=== PATIENT | female | born 1995 | race Caucasian/White ===

== ENCOUNTER 2016-11-24 10:09 | Emergency (ER) | payer OTHER ==
[~2016-11-24] VITALS: Ht 157.5 cm; Wt 109.1 kg
[2016-11-24] MEDS ORDERED: CRIN4GEL2 (10:23)
[2016-11-24 11:00] LABS: MEAN CORPUSCULAR HEMOGLOBIN 32.7 pg (27.0-33.0); MEAN CORPUSCULAR HGB CONC 35.9 g/dl (32.0-36.5); MEAN CORPUSCULAR VOLUME 91.1 fl (80.0-96.0); RED CELL DISTRIBUTION WIDTH 12.3 % (11.5-14.5); WHITE BLOOD COUNT 8.2 K/mm3 (4.0-10.0)
--- NOTE | 2016-11-24 11:49 | REP ---
FIRST TRIMESTER OB ULTRASOUND: 11/24/2016 CLINICAL HISTORY: Pelvic pain, vaginal bleeding. 11 weeks 2 days by LMP. FINDINGS: There are no prior pertinent studies. Study was performed with transabdominal probe and with an underfilled bladder. Uterus anteverted with a gestational sac shown and pole within. It has a crown-rump length of 4.1 cm corresponding to 11 weeks, which would give an EDC of 06/15/2017 compared to 06/13/2017 EDC by LMP. heart activity noted at 171. No subchorionic bleed is noted. Amniotic fluid is visually normal. The left ovary is seen with Doppler color flow demonstrated resistive index of 0.52 and measures 4.5 x 3.4 x 4.2 cm. The right ovary is 3.8 x 3.1 x 1.9 cm. It shows Doppler with resistive index of 0.59 and normal forward diastolic flow. No evidence of torsion. No adnexal mass or free fluid evident. IMPRESSION: 1. Single intrauterine gestation at 11 weeks by crown-rump length giving EDC 06/15/2017, by LMP 06/13/2017. heart rate: 171. No subchorionic bleed. 2. No adnexal mass or pelvic free fluid. No torsion. Signed by Edward Mathew MD 11/24/2016 03:53 P
[2016-11-24 13:55] VITALS: BP 124/75
== END 2016-11-24 13:56 | disposition home or self-care (01) ==
LOC: M ED 10:09
DX: O20.0 Threatened abortion (principal); O99.331 Smoking (tobacco) complicating pregnancy, first trimester; Z79.52 Long term (current) use of systemic steroids; Z3A.11 11 weeks gestation of pregnancy

== ENCOUNTER → 2017-03-01 | Outpatient (CLI) | payer OTHER ==
[~2017-03-01] MED LIST: CRIN4GEL2
--- NOTE | 2017-03-02 06:47 | REP ---
FOLLOWUP OBSTETRICAL ULTRASOUND: CLINICAL: Anatomical re-evaluation. COMPARISON: 01/15/2017. FINDINGS: Ultrasound examination demonstrates single live intrauterine in cephalic presentation. motion was identified by the technologist. Placenta is noted anteriorly and grade 1 without evidence for placenta previa or abruption. Amniotic fluid volume is normal. Cervix measures 3.4 cm in length and appears closed. No evidence for nuchal cord. Gestational age by LMP 25 weeks 1 day with estimated date of delivery 06/13/2017. Gestational age by current measurements 25 weeks 2 days with estimated date of delivery 06/12/2017. FHR 147 beats per minute. Estimated weight 802 grams (51st percentile). Anatomical assessment demonstrates normal cranium, choroid plexus, cavum, cerebellum/posterior fossa, lungs, four chamber heart, right cardiac ventricular outflow tract, diaphragm, stomach, cord insertion/three vessel cord, kidneys/bladder, spine and extremities. IMPRESSION: Single live intrauterine in cephalic presentation demonstrating appropriate interval growth. In conjunction with prior examination, limited evaluation of the facial features, left cardiac ventricular outflow tract are again noted. The remainder of the anatomical assessment is complete and normal. Signed by Eladio Rivera MD 03/03/2017 08:43 A
== END ==
LOC: M RAD 12:54
PROVIDERS: ATTEND Obstetrics & Gynecology
DX: Z34.82 Encounter for supervision of other normal pregnancy, second trimester (principal)

== ENCOUNTER → 2017-05-02 | Outpatient (CLI) | payer OTHER ==
[2017-05-02 13:54] LABS: HEMATOCRIT 33.8 % (36.0-47.0); HEMOGLOBIN 11.8 g/dl (12.0-16.0); MEAN CORPUSCULAR HEMOGLOBIN 31.3 pg (27.0-33.0); MEAN CORPUSCULAR HGB CONC 34.9 g/dl (32.0-36.5); MEAN CORPUSCULAR VOLUME 89.7 fl (80.0-96.0); PLATELET COUNT, AUTOMATED 235 10^3/uL (150-450); RED BLOOD COUNT 3.77 10^6/uL (4.00-5.40); RED CELL DISTRIBUTION WIDTH 12.9 % (11.5-14.5); WHITE BLOOD COUNT 7.1 10^3/uL (4.0-10.0)
[2017-05-02 14:14] LABS: GLUCOSE CHALLENGE TEST 1 HOUR 128 MG/DL (LESS THAN 140)
== END ==
LOC: M LAB 11:59
DX: Z36.89 Encounter for other specified antenatal screening (principal); Z3A.00 Weeks of gestation of pregnancy not specified
CPT/HCPCS: 82950

== ENCOUNTER → 2017-05-03 | Outpatient (CLI) | payer OTHER | LOC: M RAD 11:41 | DX: Z36.89 Encounter for other specified antenatal screening (principal); Z3A.33 33 weeks gestation of pregnancy | CPT/HCPCS: 76816 ==

== ENCOUNTER → 2017-05-17 | Outpatient (REF) | payer OTHER | LOC: M LAB REF 17:06 | DX: Z36.85 Encounter for antenatal screening for Streptococcus B (principal); Z3A.00 Weeks of gestation of pregnancy not specified | CPT/HCPCS: 87081 ==

== ENCOUNTER 2017-06-05 22:35 | Inpatient (IN) | payer OTHER ==
[2017-06-05] MEDS ORDERED: IBUPROFEN 800 MG TAB PO (23:15)
[2017-06-05] MEDS ORDERED: ANUSOL HC CREAM 30GM TOP (23:15)
[2017-06-05] MEDS ORDERED: MEASLES,MUMPS,RUBELLA VACCINE INJ (MMR-II) (90707) SC (23:15)
[2017-06-05] MEDS ORDERED: ACETAMINOPHEN 500 MG TAB PO (23:15)
[2017-06-05] MEDS ORDERED: DOCUSATE SODIUM 100 MG CAP PO (23:15)
[2017-06-05] MEDS ORDERED: MOM 30ML SUSPENSION UDC PO (23:15)
[2017-06-05] MEDS ORDERED: RHOGAM 300 MCG (1500 IU) INJ (J2790) IM (23:15)
[2017-06-05] MEDS ORDERED: DIBUCAINE 1% OINTMENT 30GM TOP (23:15)
[2017-06-05] MEDS ORDERED: METHYLERGONOVINE MALEATE 0.2 MG TAB PO (23:15)
[2017-06-06] MEDS: LIDOCAINE 1% MDV 20ML VIAL INFIL (00:37)
[2017-06-06] MEDS: OXYTOCIN INJ 10 UNITS/ML VIAL (J2590) IM (00:37)
[2017-06-06 02:59] LABS: HEPATITIS B SURFACE ANTIGEN NEGATIVE (NEGATIVE)
[2017-06-06] MEDS: PRENATAL VITAMINS CHEWABLE TABLET PO (08:42)
[2017-06-06] MEDS: INFLUENZA QUADRIVALENT PF VACCINE 0.5ML SYRINGE (90686) IM (11:15)
[2017-06-07] MEDS: PRENATAL VITAMINS CHEWABLE TABLET PO (08:17)
== END 2017-06-07 12:00 | disposition home or self-care (01) | DRG 775 ==
LOC: M LDI 22:35 → M OBS 06-06 00:46
PROVIDERS: Advanced Practice Midwife
PROC: 10E0XZZ Delivery of Products of Conception, External Approach (ICD-10-PCS; principal; 2017-06-05)
PROC: 0HQ9XZZ Repair Perineum Skin, External Approach (ICD-10-PCS; 2017-06-05)
DX: O70.0 First degree perineal laceration during delivery (principal); Z3A.38 38 weeks gestation of pregnancy; Z37.0 Single live birth

== ENCOUNTER → 2017-06-22 | Outpatient (CLI) | payer OTHER ==
[2017-06-22 08:06] LABS: ALT/SGPT 29 U/L (12-78); AST/SGOT 18 U/L (7-37); BILIRUBIN,TOTAL 0.2 MG/DL (0.2-1.0); CREATININE FOR GFR 1.24 MG/DL (0.55-1.30); GLOMERULAR FILTRATION RATE 56.6 (>60); LDH LACTATE DEHYDROGENASE 192 U/L (84-246); URIC ACID 6.6 MG/DL (2.6-6.0)
[2017-06-22 08:07] LABS: TOTAL PROTEIN,RANDOM URINE 10.8 MG/DL (0.0-12.0)
== END ==
LOC: M LAB 06:34
DX: I15.9 Secondary hypertension, unspecified (principal)
CPT/HCPCS: 84460

== ENCOUNTER → 2017-12-24 | Outpatient (CLI) | payer OTHER | LOC: M SMT 13:42 | DX: Z36.89 Encounter for other specified antenatal screening (principal); Z3A.18 18 weeks gestation of pregnancy | CPT/HCPCS: 76811 ==

== ENCOUNTER → 2018-01-01 | Outpatient (CLI) | payer OTHER ==
[2018-01-01 07:24] LABS: BASO % 0.3 % (0.0-1.0); EOS # 0.1 10^3/uL (0.0-0.50); EOS % 1.7 % (0.0-3.0); HEMATOCRIT 36.8 % (36.0-47.0); HEMOGLOBIN 12.7 g/dl (12.0-15.5); IMMATURE GRANULOCYTE % 0.6 % (0-3.0); LYMPH # 2.3 10^3/uL (1.5-6.5); LYMPH % 29.5 % (24.0-44.0); MEAN CORPUSCULAR HEMOGLOBIN 31.4 pg (27.0-33.0); MEAN CORPUSCULAR HGB CONC 34.5 g/dl (32.0-36.5); MEAN CORPUSCULAR VOLUME 90.9 fl (80.0-96.0); MONO # 0.8 10^3/uL (0.0-0.8); MONO % 9.8 % (0.0-5.0); NEUTROPHILS # 4.5 10^3/uL (1.8-7.7); NEUTROPHILS % 58.1 % (36.0-66.0); PLATELET COUNT, AUTOMATED 256 10^3/uL (150-450); RED BLOOD COUNT 4.05 10^6/uL (4.00-5.40); RED CELL DISTRIBUTION WIDTH 13.2 % (11.5-14.5); WHITE BLOOD COUNT 7.7 10^3/uL (4.0-10.0)
[2018-01-01 10:57] LABS: CHLAMYDIA DNA AMPLIFICATION NEGATIVE (NEGATIVE); GC DNA AMPLIFICATION NEGATIVE (NEGATIVE)
[2018-01-02 10:05] LABS: HBsAg Prenatal NEGATIVE (NEGATIVE); HIV 1&2 SCREEN CENTAUR NEGATIVE (NEGATIVE); RUBELLA IgG QUALITATIVE IMMUNE (IMMUNE)
[2018-01-02 10:05] LABS: HEPATITIS C VIRUS ABY INDEX < 0.0 INDEX (<0.8)
[2018-01-02 11:51] LABS: HEPATITIS C VIRUS ABY INDEX < 0.0 INDEX (<0.8)
[2018-01-02 11:51] LABS: HEPATITIS B SURFACE ANTIGEN NEGATIVE (NEGATIVE); HIV 1&2 SCREEN CENTAUR NEGATIVE (NEGATIVE)
== END ==
LOC: M LAB 06:47
DX: Z34.81 Encounter for supervision of other normal pregnancy, first trimester (principal); Z3A.00 Weeks of gestation of pregnancy not specified
CPT/HCPCS: 86762

== ENCOUNTER → 2018-02-27 | Outpatient (CLI) | payer OTHER ==
[~2018-02-27] MED LIST changes: +COLA100C5 PO; +IBUP-1114 PO; +MAPA500T17 PO; +MOM30SS PO; +PRENTAB9 PO
[2018-02-27 17:51] LABS: ALT/SGPT 14 U/L (12-78); BILIRUBIN,TOTAL 0.3 MG/DL (0.2-1.0); GLOMERULAR FILTRATION RATE > 60.0 (>60); LDH LACTATE DEHYDROGENASE 171 U/L (84-246); URIC ACID 4.3 MG/DL (2.6-6.0)
[2018-02-27 18:00] LABS: HEMATOCRIT 34.9 % (36.0-47.0); HEMOGLOBIN 11.7 g/dl (12.0-15.5); MEAN CORPUSCULAR HEMOGLOBIN 31.3 pg (27.0-33.0); MEAN CORPUSCULAR HGB CONC 33.5 g/dl (32.0-36.5); MEAN CORPUSCULAR VOLUME 93.3 fl (80.0-96.0); PLATELET COUNT, AUTOMATED 223 10^3/uL (150-450); RED BLOOD COUNT 3.74 10^6/uL (4.00-5.40); WHITE BLOOD COUNT 7.1 10^3/uL (4.0-10.0)
[2018-02-27 18:09] LABS: TOTAL PROTEIN,RANDOM URINE 14.3 MG/DL (0.0-12.0)
== END ==
LOC: M SMT 13:41
PROVIDERS: ATTEND Obstetrics & Gynecology
DX: O16.2 Unspecified maternal hypertension, second trimester (principal); Z3A.00 Weeks of gestation of pregnancy not specified

== ENCOUNTER → 2018-03-20 | Outpatient (CLI) | payer OTHER ==
[~2018-03-20] MED LIST changes: -MAPA500T17 PO; +MAPA500T2 PO
--- NOTE | 2018-03-21 04:18 | REP ---
Clinical: Twin gestation. Comparison: None available . Note: Evaluation is significantly limited due to maternal body habitus. Findings: Examination demonstrates monochorionic diamniotic twin gestation. Cervix measures 4.6 cm in length and appears closed. Placenta is identified anteriorly and grade 1 appearing somewhat enlarged/edematous measuring 7.5 cm in maximal width. Discordant growth is noted. Gestational age by LMP at 30 weeks 3 days with estimated date of delivery 05/26/2018 . TWIN A: Twin A identified in cephalic presentation along the maternal left side. motion is appreciated. Amniotic fluid volume is normal and the deepest pocket measures 4.2 cm. Biophysical profile score equals 8/8. FHR equals 131 beats per minute. BPD 6.8 cm 27 weeks 3 days HC 26.1 cm 28 weeks 3 days AC 24.9 cm 29 weeks 1 day FL 5.4 cm 28 weeks 3-day HL 4.8 cm 28 weeks 0 days HC/AC ratio 1.05 Umbilical cord SD ratio: 2.80 (2.50 - 3.50 Gestational age by current measurements: 28 weeks 0 days . Estimated weight 1269 grams ( 8th percentile). Limited anatomical assessment demonstrates normal cranium, cord plexus, cavum, posterior fossa, facial features, lungs, diaphragm, stomach, cord insertion, three-vessel cord, kidneys and bladder. Suboptimal evaluation of the heart/ventricular outflow tracts, spine and extremities noted. ------- TWIN B: Twin B identified in cephalic presentation along the maternal right side. motion is appreciated. Amniotic fluid volume is normal and the deepest pocket measures 4.3 cm. Biophysical profile score equals 8/8. FHR equals 139 beats per minute. BPD 7.3 cm 829 weeks 1 day HC 26.4 cm 28 weeks 5 days AC 25.2 cm 29 weeks 3-day FL 5.6 70 829 weeks 4 days HL 5.0 cm 829 weeks 2 days HC/AC ratio 1.05 Umbilical cord SD ratio: 2.34 (2.50 - 3.50) Gestational age by current measurements: 28 weeks 6 days . Estimated weight 1380 grams ( 21st percentile). Limited anatomical assessment demonstrates normal cranium, lungs, four-chamber heart, diaphragm, stomach, cord insertion, three-vessel cord, kidneys and bladder. Bilateral choroid plexus cysts measuring 1.5 cm and 2.5 cm on the right and 1.1 cm on the left are identified raising the possibility of associated ventriculomegaly. Limited evaluation of the facial features, cardiac ventricular outflow tracts, spine and extremities noted as well. Impression: 1. Monochorionic diamniotic twin gestation demonstrating discordant growth along with anatomical limitations and abnormalities as noted above including large choroid plexus cysts of twin B. 2. Limited examination. Electronically Signed by Eladio Rivera MD 03/21/2018 04:09 A
== END ==
LOC: M SMT 12:54
PROVIDERS: ATTEND Obstetrics & Gynecology
DX: O30.032 Twin pregnancy, monochorionic/diamniotic, second trimester (principal); O35.0XX2 Maternal care for (suspected) central nervous system malformation in fetus, fetus 2; Z3A.28 28 weeks gestation of pregnancy

== ENCOUNTER → 2018-03-28 | Outpatient (CLI) | payer OTHER ==
[~2018-03-28] MED LIST changes: +IBUP80TA PO; +OXYC1TAB23 PO; +PERCOCET PO; +RANI15TA PO
--- NOTE | 2018-03-29 03:26 | REP ---
Clinical: Twin gestation. well-being. Comparison: 03/20/2018 . Findings: Examination demonstrates diamniotic monochorionic twin gestation. Cervix measures 5.0 cm in length and appears closed. Placenta identified anteriorly and grade 1 without evidence for placenta previa or abruption, there is noted to be edematous in appearance. Gestational age by LMP 31 weeks 4 days with estimated date of delivery 05/26/2018. TWIN A: Twin A identified in cephalic presentation along the maternal left side. motion is appreciated. Amniotic fluid volume is within normal limits and the deepest pocket measures 3.2 cm . FHR equals 144 beats per minute. Biophysical profile score: 8/8 Umbilical cord SD ratio: 3.37 ------- TWIN B: Twin B identified in cephalic presentation along the maternal right side. motion is appreciated. Amniotic fluid volume is normal and the deepest pocket measures 3.0 cm. FHR equals 131 beats per minute. Biophysical profile score: 8/8 Umbilical cord SD ratio: 3.29 Impression: Diamniotic monochorionic twin gestation demonstrating appropriate concordant growth. No gross abnormalities are identified. Electronically Signed by Eladio Rivera MD 03/29/2018 03:18 A
== END ==
LOC: M SMT 08:21
PROVIDERS: ATTEND Advanced Practice Midwife
DX: O30.033 Twin pregnancy, monochorionic/diamniotic, third trimester (principal); Z3A.31 31 weeks gestation of pregnancy

== ENCOUNTER 2018-04-01 14:09 | Inpatient (IN) | payer OTHER ==
[~2018-04-01] VITALS: Ht 157.5 cm; Wt 117.9 kg
[~2018-04-01 14:09] MED LIST changes: -IBUP80TA PO; -OXYC1TAB23 PO; -PERCOCET PO; -RANI15TA PO
[2018-04-01 14:27] VITALS: BP 145/84
[2018-04-01] MEDS ORDERED: RANI15TA PO (14:50)
[2018-04-01] MEDS ORDERED: BETAMETHASONE SOLUSPAN 6MG/ML INJ 5ML (J0702) IM SCH (15:00)
[2018-04-01 15:15] LABS: HEMATOCRIT 34.5 % (36.0-47.0); HEMOGLOBIN 11.6 g/dl (12.0-15.5); MEAN CORPUSCULAR HEMOGLOBIN 29.6 pg (27.0-33.0); MEAN CORPUSCULAR HGB CONC 33.6 g/dl (32.0-36.5); PLATELET COUNT, AUTOMATED 200 10^3/uL (150-450); RED BLOOD COUNT 3.92 10^6/uL (4.00-5.40); WHITE BLOOD COUNT 7.5 10^3/uL (4.0-10.0)
[2018-04-01] MEDS ORDERED: LR 1,000 ML IV SCH ×3 (15:15→18:00)
[2018-04-01 15:22] VITALS: BP 138/71
[2018-04-01] MEDS ORDERED: BICITRA 30ML SOLN UDC As Ordered ONE (15:33)
[2018-04-01] MEDS ORDERED: ceFAZolin 2 GM/D5W 50 ML IV BAG (J0690 PER 500MG) As Ordered ONE (15:34)
[2018-04-01 15:37] LABS: ALT/SGPT 11 U/L (12-78); BILIRUBIN,TOTAL 0.3 MG/DL (0.2-1.0); CREATININE FOR GFR 0.59 MG/DL (0.55-1.30); GLOMERULAR FILTRATION RATE > 60.0 (>60); LDH LACTATE DEHYDROGENASE 158 U/L (84-246); URIC ACID 3.7 MG/DL (2.6-6.0)
[2018-04-01] MEDS ORDERED: BICITRA 30ML SOLN UDC PO ONE (15:45)
[2018-04-01 15:49] LABS: CREATININE,RANDOM URINE 81.7 MG/DL; TOTAL PROTEIN,RANDOM URINE 20.1 MG/DL (0.0-12.0)
[2018-04-01 15:50] VITALS: BP 144/74
[2018-04-01 15:51] VITALS: BP 143/74
[2018-04-01 15:52] LABS: INR 0.92; PROTHROMBIN TIME 12.5 SECONDS (12.1-14.4)
--- NOTE | 2018-04-01 16:08 | NUR ---
L&D H&P HPI: 22 year old at 32+1 weeks estimated gestation. Expected date of confinement: 05/26/18. dated by LMP c/w first TM US. Reports no FM of "twin A" since midnight. Seen in the office earlier today. Stillborn of Twin A was diagnosed and confirmed by two providers. A subsequent BPP was ordered for twin B and the score was 0/8. Oligohydramnios noted; MVP = 1.5cm. S/D ratio of twin B: 2.86. EFW of twin B = 1380g on 03/20/18. Denies vaginal bleeding, loss of fluid, or uterine contractions. Reports regular movement of surviving twin. course: 1. [place]ill/Di twin gestation (spontaneously conceived) 2. growth restriction (Twin A 8th percentile on 03/20/18 with normal UA doppler S/D ratio, most recent BPP 8/8 03/28/18) 3. demise/stillborn of Twin A (diagnosed on 04/01/18) 4. No e/o TTTS throughout 5. CHTN vs GHTN; normal level proteinuria (Pr/Cr <0.3) 6. Morbid obesity; 5. Pregestational DM ? (per OB chart). Normal one hour GCT screening labs: Blood type O+, antibody screen negative, rubella immune, VDRL nonreactive , hepatitis B surface antigen negative, HIV negative, hepatitis C antibody negative, GC/CT negative, aneuploidy/maternal serum screening: not done, 1 hour glucose challenge test: 100, GBS unknown. History Past medical history: PCOS, obesity, RPL, psych (borderline personality disorder, dep/anx) Surgical history: none Medications: PNV Allergies: NKDA TYPING SECTION CHIEF history: no dysplasia. CT (treated 5 years ago), no other STI. OB history: SAB x 3, Term x 1. Social history: no t/e/d. Former smoker. Family history: DM, CVD, thyroid, HTN, psych, autism. Objective Vitals: Hypertensive, normal heart rate, afebrile Heart: Regular rate and rhythm. No murmurs, rubs or gallops. Lungs: Clear to auscultation bilaterally. No wheezes, crackles, rales or rhonchi. Abdomen: Uterine fundal height consistent with dates. No guarding or rebound tenderness. Extremities: No clubbing, cyanosis or edema. Normal deep tendon reflexes. External monitoring: Twin B: heart rate nonreactive with min/mod variability, intermittent variable decelerations. Tocodynamometer: contractions occurring intermittently See [employer] for BPP result. Assessment/Plan 22 year old at 32+1 weeks gestation with a mono/di twin gestation. Stillborn of Twin A, Nonreassuring antepartum testing/biophysical profile Twin B. -Admit to labor and delivery with routine labs and orders; pre-e panel, coags, KB also ordered. -External monitoring and tocodynamometer -Pediatrics and anesthesia consulted -PNC consulted, Dr. Bolaños. Agrees with proceeding with expedited delivery. -Preparations for OR being made; plan is for PLTCS. Dr. Ney Sarmiento, DO, FACOG
[2018-04-01] MEDS ORDERED: diphenhydrAMINE INJ 50MG/ML VIAL (J1200) IV PRN (16:11)
[2018-04-01] MEDS ORDERED: ONDANSETRON 4MG/2ML VIAL (J2405) IV PRN ×3 (16:11→18:00)
[2018-04-01] MEDS ORDERED: NALOXONE INJ 0.4 MG/1 ML VIAL (J2310) IV PRN ×2 (16:11)
[2018-04-01] MEDS ORDERED: METOCLOPRAMIDE INJ 10MG/2ML VIAL (J2765) IV PRN (16:11)
[2018-04-01] MEDS ORDERED: NALBUPHINE HCL 10 MG/ML AMP (J2300) IV PRN ×2 (16:11→18:00)
[2018-04-01] MEDS ORDERED: OXYTOCIN INJ 10 UNITS/ML VIAL (J2590) As Ordered ONE (16:19)
[2018-04-01] MEDS ORDERED: ONDANSETRON 4MG/2ML VIAL (J2405) As Ordered ONE (16:19)
[2018-04-01] MEDS ORDERED: MORPHINE PRES-FREE INJ 10 MG/10 ML VIAL (J2274) As Ordered ONE (16:19)
[2018-04-01] MEDS ORDERED: KETOROLAC 60 MG/2 ML VIAL (J1885) As Ordered ONE (16:19)
[2018-04-01] MEDS ORDERED: ePHEDrine SULFATE 25 MG/5 ML(5MG/ML) SYRINGE As Ordered ONE ×2 (16:19→16:21)
[2018-04-01 17:03] LABS: CORD GAS ABE V -4.9; CORD GAS HCO3 V 19.9 MEQ/L; CORD GAS O2 SAT V 66.6 %; CORD GAS PCO2 V 35.3 mmHg; CORD GAS PH V 7.368 UNITS; CORD GAS PO2 V 28.1 mmHg; CORD GAS SBC V 19.9 MEQ/L; CORD GAS TCO2 V 20.9 MEQ/L
[2018-04-01] MEDS ORDERED: OXYTOCIN DRIP 30 UNITS in APPROPRIATE DILUENT 1 EA IV SCH (17:43)
[2018-04-01] MEDS ORDERED: RHOGAM 300 MCG (1500 IU) INJ (J2790) IM SCH (17:45)
[2018-04-01] MEDS ORDERED: PERCOCET 5MG/325MG TAB PO PRN ×2 (17:45)
[2018-04-01] MEDS ORDERED: MEASLES,MUMPS,RUBELLA VACCINE INJ (MMR-II) (90707) SC SCH (17:45)
[2018-04-01] MEDS ORDERED: PROMETHAZINE 25 MG TAB PO PRN (17:45)
[2018-04-01] MEDS ORDERED: MORPHINE 10 MG/ML 1ML VIAL (J2270) IV PRN (18:00)
[2018-04-01] MEDS ORDERED: fentaNYL 100 MCG/2 ML INJECTION (J3010) IV PRN (18:00)
--- NOTE | 2018-04-01 18:05 | NUR ---
Operative Note Date of procedure: 04/01/2018 Procedure: Primary low-transverse section Anesthesia: Spinal Preoperative diagnoses: 1. 32+1 weeks with mono/di twin gestation 2. Stillborn of "twin A" 3. growth restriction ("twin A") 4. Non-reassuring biophysical profile of surviving twin 5. CHTN vs GHTN 6. Morbid obesity Postoperative diagnoses: Same as preoperative diagnoses Velamentous cord insertion Indication: Stillborn of Twin A with non-reassuring antepartum surveillance of surviving twin. Primary surgeon: Ney Sarmiento D.O., Isaac Bird Kayak Maker: Christiana Moore CNM (essential role in surgical site exposure and assistance with delivery of both twins through the hysterotomy) Estimated blood loss: 500 ml IV fluids administered: 1900 ml crystalloid Drains: Azar catheter. Urine output:150 ml [place] data: Surviving twin: Apgars 1,5,8. Cord gas: 7.368, -4.9. Birthweight 1668g, 3lbs 11oz. Female. Stillborn: birthweight 1470g, 3lbs 4oz. Female. Preoperative/prophylactic antibiotics: Ancef 2 g IV (given within 30 minutes prior to surgical start time). Intraoperative findings: Surviving twin was delivered first. Minimal amniotic fluid c/w oligohydramnios. Stillborn delivered with an avulsed umbilical cord. Upon further inspection, a velamentous cord insertion was noted. Specimen(s): Monochorionic/Diamniotic placenta Procedure: The patient was counseled and consented on the risks, benefits, indications and alternatives of the procedure. Informed consent was obtained and placed in the c hemphill. She was taken to the operating room with an IV running. She was placed on the operating table. Spinal anesthesia was administered without any difficulty and found to be adequate. She was placed in the dorsal supine position with a leftward tilt. Sequential compression devices were placed on the lower extremities. A Azar catheter was placed under sterile conditions. She was sterilely prepped and draped. A surgical timeout was performed per protocol. Spinal anesthesia was again found to be adequate. Using the 10 blade a Pfannenstiel incision was performed. The 10 blade was used to dissect down to the level of the rectus sheath fascia. The rectus sheath fas marc was incised at the midline, and the fascial incision was extended with Montaño scissors. Suni clamps were used to grasp the superior and inferior aspect of the fascial incision and the rectus muscle bellies were dissected off sharply and bluntly. The midline was identified and the rectus muscle bellies were manually . The peritoneum was identified and clamped with hemostats and elevated. The peritoneum was then incised with Metzenbaum scissors. Entry into the intraperitoneal cavity was achieved. The peritoneal opening was extended with manual stretch . There was good visualization of both the bladder and the lower uterine segment. The bladder retractor was placed. The vesicouterine peritoneum was dissected with Metzenbaum scissors and blunt dissection. Bladder retractor was repositioned. A low transverse uterine incision was made with a new 10 blade. The hysterotomy was extended with manual stretch. An amniotic sac was protruding an d then artificially ruptured. Scant clear amniotic fluid was noted. The surviving twin's head delivered through the hysterotomy with ease. The remainder of the body delivered with ease. The cord was doubly clamped and cut and the baby was handed off to awaiting care. See data above. Cord blood was obtained. Cord gases were obtained. The amniotic sac of the stillborn was entered digitally. A moderate amount of blood was noted to be surrounding the stillborn. The head delivered through the hysterotomy and the body delivered with ease. The placenta was manually removed and noted to be fully intact (see description in intraoperative findings). The uterus was exteriorized. The intrauterine cavi ty was cleared of all clot and debris with a laparotomy sponge. The hysterotomy was closed with 0 Vicryl in running, locked fashion. A second imbricating closure was performed over the initial layer closure using 0 Vicryl. The hysterotomy was noted to be hemostatic. The posterior cul-de-sac was irrigated a nd cleared of all clot and debris. The uterus was replaced back into the abdomen. The paracolic gutters were cleared of all clot and debris with damp laparotomy sponges. The hysterotomy is reinspected and noted to be hemostatic. Sponge, needle and instrument counts were correct. The peritoneum was closed with 3-0 Vicryl in running fashion. The rectus muscle bellies were reapproximated with 3-0 Vicryl with a series of interrupted sutures. The rectus muscle bellies were noted to be hemostatic. The fascia was closed with 0 Vicryl in running fashion. Sponge, needle and instrument counts were again correct. The subcutaneous layer was irrigated. Small subcutaneous bleeders were cauterized with Bovie. The subcutaneous layer was reapproximated with 3-0 Vicryl in running fashion. The skin was closed with 3-0 Monocryl in subcuticular fashion. A bandage was placed over the closed incision. The final sponge, instrument and needle count was correct. She tolerated the entire procedure very well. She was transferred to the PACU in good and stable condition. Dr. Ney Sarmiento D.O., F.A.C.O.G
[2018-04-01] MEDS ORDERED: OXYTOCIN 30 UNITS IN 0.9% NaCl 500ML IV BAG (J2590) As Ordered ONE (18:20)
[2018-04-01 19:54] VITALS: BP 134/75
[2018-04-01] MEDS: DOCUSATE SODIUM 100 MG CAP PO SCH (21:00)
[2018-04-01] MEDS: KETOROLAC 30 MG/ML VIAL (J1885) IV SCH (23:00)
[2018-04-02 00:02] VITALS: BP 132/67
[2018-04-02] MEDS: KETOROLAC 30 MG/ML VIAL (J1885) IV SCH ×2 (04:08→10:59)
[2018-04-02 04:15] VITALS: BP 135/77
[2018-04-02 05:53] VITALS: BP 124/88
[2018-04-02 07:07] LABS: HEMATOCRIT 29.9 % (36.0-47.0); HEMOGLOBIN 10.1 g/dl (12.0-15.5); MEAN CORPUSCULAR HEMOGLOBIN 29.2 pg (27.0-33.0); MEAN CORPUSCULAR HGB CONC 33.8 g/dl (32.0-36.5); MEAN CORPUSCULAR VOLUME 86.4 fl (80.0-96.0); PLATELET COUNT, AUTOMATED 216 10^3/uL (150-450); RED BLOOD COUNT 3.46 10^6/uL (4.00-5.40); WHITE BLOOD COUNT 13.1 10^3/uL (4.0-10.0)
[2018-04-02] MEDS ORDERED: PRENATAL VITAMINS CHEWABLE TABLET PO SCH (09:00)
--- NOTE | 2018-04-02 09:15 | NUR ---
POD#1 s/p emergent PLTCS [place]/di twins at 32+1 weeks. Stillborn of one twin, surviving twin had NR BPP. Surviving twin transferred to [facility] shortly after delivery. S: Pain well controlled, tolerating PO, ambulating without difficulty. Lochia decreasing/minimal. Azar still in place. Pt requesting d/c from hospital later today since her baby is at [facility]. O: Normotensive, normal HR, afebrile H: RRR no m/g/r L: CTA b/l no w/c/r/r Abd: soft,nt,nd,U-2cm/firm and appropriately tender Incision: bandage not soaked through Ext: no c/c/e A/P: POD#1. Hemodynamically stable, afebrile, good pain control. -Routine postoperative care and advancement. -Consider d/c later this afternoon. -Routine fever/infectious, pain, and bleeding precautions reviewed. -Wound care also reviewed. Leti Sarmiento DO
[2018-04-02 10:00] VITALS: BP 133/79
[2018-04-02] MEDS ORDERED: ADACEL/BOOSTRIX VACCINE (DIPHTH/PERTUSS/ACELL/TETANUS)0.5ML SYR (90715) IM ONE (10:15)
[2018-04-02] MEDS ORDERED: INFLUENZA QUADRIVALENT PF VACCINE 0.5ML SYRINGE (90686) IM ONE (10:15)
[2018-04-02] MEDS: DOCUSATE SODIUM 100 MG CAP PO SCH (10:58)
[2018-04-02 14:00] VITALS: BP 133/70
[2018-04-02] MEDS ORDERED: IBUP-1114 PO (14:17)
[2018-04-02] MEDS ORDERED: OXYC1TAB23 PO (14:17)
[2018-04-02] MEDS ORDERED: COLA100C5 PO ×2 (14:17→14:35)
[2018-04-02] MEDS ORDERED: PERCOCET PO (14:33)
[2018-04-02] MEDS ORDERED: IBUP80TA PO (14:34)
--- NOTE | 2018-04-02 15:08 | NUR ---
Discharge Summary Date of admission: 04/01/2018 Date of discharge: 04/02/2018 Admitting diagnoses: Monochorionic diamniotic twin gestation. 32+1 weeks gestation. growth restriction. Stillborn of one twin. Nonreassuring biophysical profile of surviving twin. Maternal obesity. Gestational hypertension, possible undiagnosed chronic hypertension. Discharge diagnoses: Same as admitting diagnoses. Velamentous cord insertion of twin A/stillborn. Status post emergent primary low transverse section. Discharge Summary: 22 year-old G5 now P 1132. She was admitted on 04/02/2018 at 32+1 weeks EGA with a diagnosis of stillborn of one twin and nonreassuring antepartum testing of surviving twin, necessitating emergent delivery. The emergent primary low-transverse delivery under spinal anesthesia was uncomplicated. The ICU staff was present at delivery. The surviving twin had Apgars of 1, 5 and 8. See NICU documentation for further details. The patient's postoperative course was uncomplicated. A notable finding intraoperatively was a monochorionic placenta with a velamentous cord insertion of the stillborn. The stillborn twin was born/delivered with an avulsed umbilical cord. By postoperative day #1, the patient was meeting all discharge criteria and she was highly desirous of being discharged from the hospital. The surviving twin was transferred to [facility] and she was adamant about being discharged to be with her as soon as possible. Her pain was well controlled on oral pain meds. She was ambulating without assistance, voiding spontaneously, tolerating a regular diet, and her lochia/bleeding was minimal. Of note, the stillborn [place] [facility] [place]. An autopsy was declined by the patient. Physical exam on date of discharge: Vitals: normotensive, normal HR, afebrile Heart: regular rate and rhythm with no murmurs, gallops, rubs. Lungs: clear to auscultation bilaterally, no wheezes, crackles, rales, ronchi Abd: soft, non-distended, appropriately tender. Normoactive bowel sounds. Incision: clean, dry, intact without surrounding erythema or induration. Ext: non-edematous, non-tender, negative Patricio's sign bilaterally Assessment/Plan: 22 year-old G5 now P2 status post emergent primary low-transverse delivery on 04/01/2018 now postoperative day #1. Hemodynamically stable, afebrile, with good pain control. Meeting all discharge criteria. -Routine infectious, fever, pain, and bleeding precautions reviewed -Surgical wound/incisional care / precautions reviewed. -Discharge medications: Percocet, Motrin, Colace. -Outpatient follow up in 1-2 weeks for a routine incision / postoperative check. Dr. Ney Sarmiento, DO, FACOG
[2018-04-02] MEDS ORDERED: IBUPROFEN 800 MG TAB PO SCH (19:00)
== END 2018-04-02 14:52 | disposition home or self-care (01) | DRG 772 ==
LOC: M LDO 14:09 → M LDI 15:16 → M OBS 04-02 04:36
PROVIDERS: ADMIT Advanced Practice Midwife; ATTEND Obstetrics & Gynecology
PROC: 10D00Z1 Extraction of Products of Conception, Low, Open Approach (ICD-10-PCS; principal; 2018-04-01 16:01)
DX: O36.4XX1 Maternal care for intrauterine death, fetus 1 (principal); O41.03X2 Oligohydramnios, third trimester, fetus 2; Z68.42 Body mass index [BMI] 45.0-49.9, adult; O36.5932 Maternal care for other known or suspected poor fetal growth, third trimester, fetus 2; O30.033 Twin pregnancy, monochorionic/diamniotic, third trimester; Z3A.32 32 weeks gestation of pregnancy; O76 Abnormality in fetal heart rate and rhythm complicating labor and delivery; O99.214 Obesity complicating childbirth; E66.01 Morbid (severe) obesity due to excess calories; O13.3 Gestational [pregnancy-induced] hypertension without significant proteinuria, third trimester; O69.89X1 Labor and delivery complicated by other cord complications, fetus 1; Z37.3 Twins, one liveborn and one stillborn

== ENCOUNTER → 2018-04-01 | Outpatient (CLI) | payer OTHER ==
--- NOTE | 2018-04-01 15:07 | REP ---
OBSTETRIC SONOGRAPHY: Multiple gestation. HISTORY: Supervision of , decreased motion. Third trimester twin . FINDINGS: Comparison sonography March 28, 2018. A known diamniotic monochorionic twin gestation is seen. Placenta is anterior to the right, grade 1 without evidence of previa or abruption. Closed cervical length is 4.7 cm measured transabdominally. Fetus A shows absence of motion and absence of cardiac motion consistent with intrauterine demise. Is vertex in position along the maternal left. There is oligohydramnios surrounding twin A. Biophysical profile score is 0 out of a possible 8. The deepest pocket of amniotic fluid surrounding twin A is 1.87 cm. Echogenic foci are visible in the abdomen. Twin B is living, cephalic in lie along maternal right. Amniotic fluid is subjectively decreased. The deepest pocket of amniotic fluid surrounding twin A is 1.5 cm. Biophysical profile score is 0 out of a possible eight. Minimal sluggish movement was seen during the exam. heart rate for twin B is recorded at 155 beats per minute. S/D ratio in the umbilical cord artery by Doppler is 2.86 which is slightly low. There are some echogenic foci in the abdomen of twin B as well. IMPRESSION: Findings consistent with intrauterine demise of twin A. Oligohydramnios both twins. Biophysical profile score is 0 out of a possible 8. heart rate for twin B 155 beats per minute. Expected gestational age estimate based on prior sonography is 32 weeks 2 days. ARIC by prior sonography May 25, 2018. Electronically Signed by Martinez Guzman MD 04/01/2018 03:25 P
== END ==
LOC: M RAD 13:10
PROVIDERS: ATTEND Advanced Practice Midwife
DX: Z36.9 Encounter for antenatal screening, unspecified (principal); O30.033 Twin pregnancy, monochorionic/diamniotic, third trimester; Z3A.32 32 weeks gestation of pregnancy

== ENCOUNTER 2018-05-28 12:28 | Emergency (ER) | payer OTHER ==
[~2018-05-28] VITALS: Ht 157.5 cm; Wt 113.6 kg
[~2018-05-28 12:28] MED LIST changes: +IBUP80TA PO; +OXYC1TAB23 PO; +PERCOCET PO; +RANI15TA PO
[2018-05-28 13:41] LABS: HEMATOCRIT 41.7 % (36.0-47.0); HEMOGLOBIN 13.9 g/dl (12.0-15.5); MEAN CORPUSCULAR HEMOGLOBIN 28.5 pg (27.0-33.0); MEAN CORPUSCULAR HGB CONC 33.3 g/dl (32.0-36.5); MEAN CORPUSCULAR VOLUME 85.6 fl (80.0-96.0); PLATELET COUNT, AUTOMATED 289 10^3/uL (150-450); RED BLOOD COUNT 4.87 10^6/uL (4.00-5.40); WHITE BLOOD COUNT 6.8 10^3/uL (4.0-10.0)
[2018-05-28] MEDS ORDERED: LABETALOL 100 MG TAB PO ONE ×2 (14:00→14:15)
[2018-05-28] MEDS ORDERED: ACETAMINOPHEN TAB 650MG DOSE (2X325MG) PO ONE (14:00)
[2018-05-28] MEDS ORDERED: cefTRIAXone SOD 1 GM in D5W MINI-BAG PLUS 50 ML IV ONE (14:00)
[2018-05-28 14:01] LABS: ALBUMIN 4.2 GM/DL (3.2-5.2); ALT/SGPT 65 U/L (12-78); BILIRUBIN,TOTAL 0.5 MG/DL (0.2-1.0); BLOOD UREA NITROGEN 11 MG/DL (7-18); CALCIUM LEVEL 9.2 MG/DL (8.5-10.1); CARBON DIOXIDE LEVEL 25 MEQ/L (21-32); CHLORIDE LEVEL 108 MEQ/L (98-107); CREATININE FOR GFR 0.87 MG/DL (0.55-1.30); GLOMERULAR FILTRATION RATE > 60.0 (>60); GLUCOSE, FASTING 101 MG/DL (70-100); POTASSIUM SERUM 3.8 MEQ/L (3.5-5.1); SODIUM LEVEL 139 MEQ/L (136-145); TOTAL PROTEIN 7.8 GM/DL (6.4-8.2)
[2018-05-28 14:15] VITALS: BP 154/78
[2018-05-28] MEDS ORDERED: BACT800T5 PO (14:44)
[2018-05-28] MEDS ORDERED: CHLO125TA PO (14:44)
[2018-05-28 15:00] VITALS: BP 126/81
== END 2018-05-28 15:06 | disposition home or self-care (01) ==
LOC: M ED 12:28
DX: N39.0 Urinary tract infection, site not specified (principal)
CPT/HCPCS: 70450; 80053; 81000; 81001; 81025; 84443; 85027; 87086; 96374; 99284; J0696

== ENCOUNTER → 2018-08-06 | Outpatient (CLI) | payer MEDICAID, OTHER ==
[~2018-08-06] MED LIST changes: +BACT800T5 PO; +CHLO125TA PO; -CRIN4GEL2; +CRIN8GEL4
== END ==
LOC: M SMT 09:06
PROVIDERS: ATTEND Obstetrics & Gynecology
DX: E28.2 Polycystic ovarian syndrome (principal); Z53.9 Procedure and treatment not carried out, unspecified reason

== ENCOUNTER → 2018-08-07 | Outpatient (REF) | payer OTHER ==
[2018-08-07 22:41] LABS: CHLAMYDIA DNA AMPLIFICATION NEGATIVE (NEGATIVE); GC DNA AMPLIFICATION NEGATIVE (NEGATIVE)
== END ==
LOC: M LAB REF 17:10
PROVIDERS: ATTEND Obstetrics & Gynecology
DX: Z11.3 Encounter for screening for infections with a predominantly sexual mode of transmission (principal)

== ENCOUNTER → 2018-10-10 | Outpatient (CLI) | payer OTHER ==
[2018-10-10 14:59] LABS: HEMATOCRIT 40.8 % (36.0-47.0); HEMOGLOBIN 13.7 g/dl (12.0-15.5); MEAN CORPUSCULAR HEMOGLOBIN 30.4 pg (27.0-33.0); MEAN CORPUSCULAR HGB CONC 33.6 g/dl (32.0-36.5); MEAN CORPUSCULAR VOLUME 90.5 fl (80.0-96.0); PLATELET COUNT, AUTOMATED 258 10^3/uL (150-450); RED BLOOD COUNT 4.51 10^6/uL (4.00-5.40); WHITE BLOOD COUNT 6.7 10^3/uL (4.0-10.0)
[2018-10-10 15:13] LABS: ALBUMIN 3.6 GM/DL (3.2-5.2); ALT/SGPT 32 U/L (12-78); BILIRUBIN,TOTAL 0.4 MG/DL (0.2-1.0); BLOOD UREA NITROGEN 14 MG/DL (7-18); CALCIUM LEVEL 8.9 MG/DL (8.5-10.1); CARBON DIOXIDE LEVEL 28 MEQ/L (21-32); CHLORIDE LEVEL 105 MEQ/L (98-107); CREATININE FOR GFR 0.94 MG/DL (0.55-1.30); GLOMERULAR FILTRATION RATE > 60.0 (>60); GLUCOSE, FASTING 98 MG/DL (70-100); HCG, SERUM QUANTITATIVE 150 MIU/ML; POTASSIUM SERUM 4.1 MEQ/L (3.5-5.1); SODIUM LEVEL 140 MEQ/L (136-145)
[2018-10-10 15:43] LABS: HEMOGLOBIN A1c 5.6 %
== END ==
LOC: M LAB 14:14
PROVIDERS: ATTEND Obstetrics & Gynecology
DX: N91.2 Amenorrhea, unspecified (principal)

== ENCOUNTER → 2018-10-12 | Outpatient (CLI) | payer OTHER | LOC: M LAB 13:08 | PROVIDERS: ATTEND Obstetrics & Gynecology | DX: N91.2 Amenorrhea, unspecified (principal) ==

== ENCOUNTER → 2018-11-29 | Outpatient (CLI) | payer OTHER ==
[~2018-11-29] MED LIST changes: +ACET-841 PO; +BUTACAP78 PO; +NIFE30TA7 PO
[2018-11-29 15:34] LABS: BASO % 0.3 % (0.0-1.0); EOS # 0.1 10^3/uL (0.0-0.5); EOS % 1.2 % (0.0-3.0); HEMATOCRIT 42.4 % (36.0-47.0); HEMOGLOBIN 14.3 g/dl (12.0-15.5); LYMPH # 1.8 10^3/uL (1.5-5.0); LYMPH % 27.2 % (24.0-44.0); MEAN CORPUSCULAR HEMOGLOBIN 30.3 pg (27.0-33.0); MEAN CORPUSCULAR HGB CONC 33.7 g/dl (32.0-36.5); MEAN CORPUSCULAR VOLUME 89.8 fl (80.0-96.0); MONO # 0.5 10^3/uL (0.0-0.8); MONO % 7.4 % (0.0-5.0); NEUTROPHILS # 4.2 10^3/uL (1.5-8.5); NEUTROPHILS % 63.6 % (36.0-66.0); PLATELET COUNT, AUTOMATED 243 10^3/uL (150-450); RED BLOOD COUNT 4.72 10^6/uL (4.00-5.40); WHITE BLOOD COUNT 6.6 10^3/uL (4.0-10.0)
[2018-11-29 15:55] LABS: CREATININE,RANDOM URINE 18.5 MG/DL; TOTAL PROTEIN,RANDOM URINE 6.5 MG/DL (0.0-12.0)
[2018-11-29 17:01] LABS: CHLAMYDIA DNA AMPLIFICATION NEGATIVE (NEGATIVE); GC DNA AMPLIFICATION NEGATIVE (NEGATIVE)
[2018-11-30 12:45] LABS: HIV 1&2 SCREEN CENTAUR NEGATIVE (NEGATIVE); RUBELLA IgG QUALITATIVE IMMUNE (IMMUNE)
[2018-12-02 10:50] LABS: HEPATITIS C VIRUS ABY INDEX 0.1 INDEX (<0.8)
== END ==
LOC: M LAB 14:20
PROVIDERS: ATTEND Obstetrics & Gynecology
DX: O10.011 Pre-existing essential hypertension complicating pregnancy, first trimester (principal); Z3A.00 Weeks of gestation of pregnancy not specified

== ENCOUNTER 2018-12-05 23:32 | Emergency (ER) | payer OTHER ==
[~2018-12-05] VITALS: Ht 157.5 cm; Wt 118.2 kg
[~2018-12-05 23:32] MED LIST changes: -ACET-841 PO; -BUTACAP78 PO; -NIFE30TA7 PO
[2018-12-05] MEDS ORDERED: ACET-841 PO (23:38)
[2018-12-05] MEDS ORDERED: NIFE30TA7 PO (23:38)
[2018-12-05] MEDS ORDERED: BUTACAP78 PO (23:38)
[2018-12-06 00:37] LABS: HEMOGLOBIN 14.1 g/dl (12.0-15.5); MEAN CORPUSCULAR HEMOGLOBIN 29.7 pg (27.0-33.0); MEAN CORPUSCULAR HGB CONC 34.4 g/dl (32.0-36.5); MEAN CORPUSCULAR VOLUME 86.5 fl (80.0-96.0); PLATELET COUNT, AUTOMATED 221 10^3/uL (150-450); RED BLOOD COUNT 4.74 10^6/uL (4.00-5.40); WHITE BLOOD COUNT 7.9 10^3/uL (4.0-10.0)
[2018-12-06] MEDS ORDERED: NS 1,000 ML IV ONE (00:45)
[2018-12-06 01:07] LABS: ALBUMIN 3.2 GM/DL (3.2-5.2); ALT/SGPT 14 U/L (12-78); BILIRUBIN,TOTAL 0.3 MG/DL (0.2-1.0); BLOOD UREA NITROGEN 7 MG/DL (7-18); CALCIUM LEVEL 9.3 MG/DL (8.5-10.1); CARBON DIOXIDE LEVEL 24 MEQ/L (21-32); CHLORIDE LEVEL 105 MEQ/L (98-107); CREATININE FOR GFR 0.65 MG/DL (0.55-1.30); GLOMERULAR FILTRATION RATE > 60.0 (>60); GLUCOSE, FASTING 92 MG/DL (70-100); POTASSIUM SERUM 3.6 MEQ/L (3.5-5.1); SODIUM LEVEL 138 MEQ/L (136-145); TOTAL PROTEIN 6.6 GM/DL (6.4-8.2)
[2018-12-06] MEDS ORDERED: MORPHINE 4 MG/ML 1ML VIAL/SYRINGE (J2270) IV ONE (01:15)
[2018-12-06] MEDS ORDERED: METOCLOPRAMIDE INJ 10MG/2ML VIAL (J2765) IV ONE (01:15)
[2018-12-06] MEDS ORDERED: ACETAMINOPHEN 325 MG TAB PO ONE (01:15)
[2018-12-06 01:28] LABS: APPEARANCE, URINE CLEAR (CLEAR); BACTERIA, URINE AUTO 1+ (NEGATIVE); BILIRUBIN, URINE AUTO NEGATIVE (NEGATIVE); BLOOD, URINE BLOOD NEGATIVE (NEGATIVE); COLOR, URINE STRAW (YELLOW); GLUCOSE, URINE (UA) AUTO NEGATIVE (NEGATIVE); KETONE, URINE AUTO NEGATIVE (NEGATIVE); LEUKOCYTE ESTERASE, URINE AUTO TRACE (NEGATIVE); MUCUS, URINE SMALL (NEGATIVE); NITRITE, URINE AUTO NEGATIVE (NEGATIVE); PROTEIN, URINE AUTO NEGATIVE (NEGATIVE); RBC, URINE AUTO 2 /HPF (0-3); SPECIFIC GRAVITY URINE AUTO 1.008 (1.002-1.035); SQUAMOUS EPITHELIAL CELL UR AU 1 /HPF (0-6); UROBILINOGEN, URINE AUTO 0.2 mg/dL (0.0-2.0); WBC, URINE AUTO 1 /HPF (0-3)
[2018-12-06 02:25] VITALS: BP 164/96
--- NOTE | 2018-12-06 20:05 | ECGEPIP ---
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
== END 2018-12-06 02:50 | disposition home or self-care (01) ==
LOC: M ED 23:32
DX: G43.909 Migraine, unspecified, not intractable, without status migrainosus (principal); I10 Essential (primary) hypertension; Z79.899 Other long term (current) drug therapy
CPT/HCPCS: 80053; 81001; 85027; 93005; 96361; 96374; 96375; 99284; J2270; J2765

== ENCOUNTER → 2018-12-16 | Outpatient (REF) | payer OTHER ==
[~2018-12-16] MED LIST changes: +ACET-841 PO; +BUTACAP78 PO; +NIFE30TA7 PO
== END ==
LOC: M LAB REF 12:47
PROVIDERS: ATTEND Obstetrics & Gynecology
DX: O10.012 Pre-existing essential hypertension complicating pregnancy, second trimester (principal)

== ENCOUNTER → 2018-12-27 | Outpatient (CLI) | payer OTHER | LOC: M SLEEP HO 09:38 | PROVIDERS: ATTEND Obstetrics & Gynecology | DX: G47.30 Sleep apnea, unspecified (principal) ==

== ENCOUNTER 2019-03-01 12:29 | Outpatient (CLI) | payer OTHER ==
[~2019-03-01] VITALS: Ht 157.5 cm; Wt 122.0 kg
[~2019-03-01 12:29] MED LIST changes: +NIFE1TAB52 PO; -NIFE30TA7 PO
[2019-03-01 12:49] VITALS: BP 142/69
[2019-03-01] MEDS ORDERED: PREN29TA4 PO (12:57)
[2019-03-01] MEDS ORDERED: ASPI81TA85 PO (12:57)
[2019-03-01] MEDS ORDERED: NIFE60TA40 PO (12:57)
[2019-03-01 13:04] VITALS: BP 153/72
[2019-03-01 13:31] VITALS: BP 148/72
[2019-03-01 13:47] VITALS: BP 123/58
== END 2019-03-01 14:09 | disposition home or self-care (01) ==
LOC: M LDO 12:29
PROVIDERS: ATTEND Obstetrics & Gynecology
DX: O36.8121 Decreased fetal movements, second trimester, fetus 1 (principal); Z3A.24 24 weeks gestation of pregnancy; O10.012 Pre-existing essential hypertension complicating pregnancy, second trimester; N96 Recurrent pregnancy loss; Z79.899 Other long term (current) drug therapy; Z87.59 Personal history of other complications of pregnancy, childbirth and the puerperium
CPT/HCPCS: 59025; 76815; G0378; G0463

== ENCOUNTER → 2019-03-03 | Outpatient (CLI) | payer OTHER ==
[~2019-03-03] MED LIST changes: +ASPI81TA85 PO; -NIFE1TAB52 PO; +NIFE30TA7 PO; +NIFE60TA40 PO; +PREN29TA4 PO
--- NOTE | 2019-03-03 08:55 | REP ---
OB ULTRASOUND: Real-time sonographic evaluation of the gravid uterus performed. There is a single living intrauterine gestation with an estimated gestational age 25 weeks 1 day, EDC 06/15/2019. Today's measurements indicate appropriate growth. Biometry and Growth: BPD 59 mm = 24 weeks 2 days, 32nd percentile HC 224 mm = 24 weeks 3 days, 35th percentile AC 193 mm = 24 weeks 0 days, 26th percentile FL 47 mm = 25 weeks 4 days, 59th percentile HC/AC ratio 1.16 within normal range. Estimated weight 713 grams, 30th percentile. SEEN/GROSSLY UNREMARKABLE Lateral ventricles Yes Posterior fossa Yes Upper lip Yes Four-chamber heart Yes LVOT Yes RVOT Yes Stomach Yes Cord insertion Yes Three vessel cord Yes Kidneys Yes Bladder Yes Spine No Cervical length: Closed and measures 5.9 cm in length. heart rate: 136 beats per minute. position: Breech Placenta: Anterior and grade 0 with no previa or abruption. Amniotic fluid: Within normal limits. Unreviewed
== END ==
LOC: M RAD 06:38
PROVIDERS: ATTEND Obstetrics & Gynecology
DX: O10.919 Unspecified pre-existing hypertension complicating pregnancy, unspecified trimester (principal)

== ENCOUNTER → 2019-03-21 | Outpatient (CLI) | payer OTHER ==
[2019-03-21 17:16] LABS: BLOOD UREA NITROGEN 6 MG/DL (7-18); CALCIUM LEVEL 8.9 MG/DL (8.5-10.1); CARBON DIOXIDE LEVEL 24 MEQ/L (21-32); CHLORIDE LEVEL 104 MEQ/L (98-107); CREATININE FOR GFR 0.72 MG/DL (0.55-1.30); GLOMERULAR FILTRATION RATE > 60.0 (>60); GLUCOSE, FASTING 118 MG/DL (70-100); MAGNESIUM LEVEL 1.8 MG/DL (1.8-2.4); NT-PRO BNP 10 PG/ML (<125); POTASSIUM SERUM 3.7 MEQ/L (3.5-5.1); SODIUM LEVEL 136 MEQ/L (136-145)
[2019-03-21 17:20] LABS: CREATININE, URINE 25.5 MG/DL; CREATININE,RANDOM URINE 25.5 MG/DL; MALB URINE SIEMENS 8.6 MG/L; MAU/CREAT RATIO 33.7 MCG/MG (0.0-30.0)
== END ==
LOC: M LAB 14:09
PROVIDERS: ATTEND Internal Medicine Cardiovascular Disease
DX: R06.02 Shortness of breath (principal); I10 Essential (primary) hypertension

== ENCOUNTER → 2019-03-21 | Outpatient (CLI) | payer OTHER ==
[2019-03-21 16:53] LABS: HEMATOCRIT 37.4 % (36.0-47.0); HEMOGLOBIN 12.6 g/dl (12.0-15.5); MEAN CORPUSCULAR HEMOGLOBIN 31.3 pg (27.0-33.0); MEAN CORPUSCULAR HGB CONC 33.7 g/dl (32.0-36.5); MEAN CORPUSCULAR VOLUME 92.8 fl (80.0-96.0); PLATELET COUNT, AUTOMATED 209 10^3/uL (150-450); RED BLOOD COUNT 4.03 10^6/uL (4.00-5.40); WHITE BLOOD COUNT 6.3 10^3/uL (4.0-10.0)
[2019-03-21 17:10] LABS: CREATININE,RANDOM URINE 25.8 MG/DL; TOTAL PROTEIN,RANDOM URINE < 5.0 MG/DL (0.0-12.0)
[2019-03-21 17:11] LABS: ALT/SGPT 12 U/L (12-78); BILIRUBIN,TOTAL 0.3 MG/DL (0.2-1.0); CREATININE FOR GFR 0.65 MG/DL (0.55-1.30); GLOMERULAR FILTRATION RATE > 60.0 (>60); GLUCOSE CHALLENGE TEST 1 HOUR 120 MG/DL (LESS THAN 140); LDH LACTATE DEHYDROGENASE 162 U/L (84-246); URIC ACID 3.8 MG/DL (2.6-6.0)
== END ==
LOC: M LAB 14:07
PROVIDERS: ATTEND Obstetrics & Gynecology
DX: O10.919 Unspecified pre-existing hypertension complicating pregnancy, unspecified trimester (principal); Z3A.00 Weeks of gestation of pregnancy not specified

== ENCOUNTER → 2019-03-25 | Outpatient (CLI) | payer OTHER ==
[~2019-03-25] MED LIST changes: +NIFE1TAB52 PO; -NIFE30TA7 PO
--- NOTE | 2019-03-26 04:47 | REP ---
Clinical: Maternal hypertension. well-being. Comparison: 03/03/2019 . Findings: Examination demonstrates a single live intrauterine in cephalic presentation. motion is identified by technologist. Placenta is noted anterior and grade I without evidence for placenta previa or abruption. Amniotic fluid volume is normal. Cervix measures 4.6 cm in length and appears closed. Nuchal cord cannot be excluded. Gestational age by LMP 28 weeks 2 days with ARIC 06/15/2019 . Gestational age by current measurements 28 weeks 2 days with ARIC 06/15/2019 . FHR equals 140 beats per minute. Estimated weight 1178 grams ( 38th percentile). Amniotic fluid index: 12.1 cm (9.3 - 22.9) Umbilical cord SD ratio: 2.67 (2.57 - 3.85). Impression: 1. Single live intrauterine in cephalic presentation demonstrating appropriate interval growth. No gross abnormalities are identified. 2. Nuchal cord cannot be excluded. Electronically Signed by Eladio Rivera MD 03/26/2019 04:38 A
== END ==
LOC: M RAD 15:41
PROVIDERS: ATTEND Obstetrics & Gynecology
DX: O10.919 Unspecified pre-existing hypertension complicating pregnancy, unspecified trimester (principal)

== ENCOUNTER 2019-04-05 20:40 | Outpatient (CLI) | payer OTHER ==
[~2019-04-05] VITALS: Ht 157.5 cm; Wt 123.2 kg
[2019-04-05] MEDS ORDERED: NIFEdipine 30 MG XL TAB PO SCH (21:00)
[2019-04-05 21:05] VITALS: BP 164/80
[2019-04-05 21:53] VITALS: BP 142/63
--- NOTE | 2019-04-06 10:40 | IPN ---
DATE: 04/05/2019 This is a 23-year-old G6, P1-1-3-1 with an estimated date of confinement of 06/15/2019 who has an estimated gestational age of 29 weeks and 6 days, presenting to labor and delivery after having slipped on the ice. She was walking outside, slipped on the ice and fell flat on her back. She drove herself to the emergency department. She was sent up to labor and delivery from the emergency department, where she was put on the monitor. She was observed for an hour. There were no contractions seen on tachometer. She was not experiencing contractions, bleeding, or discharge. She was feeling baby move. She was given her night time dose of nifedipine 60 mg. Her vital signs remained stable. She was discharged home in stable condition. My faculty preceptor for this patient encounter was physically present during the encounter and was fully available. All aspects of the patient interview, examination, medical decision making process, and medical care plan development were reviewed and approved by the faculty preceptor. The faculty preceptor is aware and concurs with the plan as stated in the body of this note and will attest to such by his/her co-signature.
== END 2019-04-05 22:30 | disposition home or self-care (01) ==
LOC: M LDO 20:40
PROVIDERS: ATTEND Specialist
DX: Z04.3 Encounter for examination and observation following other accident (principal); W00.0XXA Fall on same level due to ice and snow, initial encounter; Z3A.29 29 weeks gestation of pregnancy; Y93.89 Activity, other specified; Y92.89 Other specified places as the place of occurrence of the external cause; Y99.8 Other external cause status
CPT/HCPCS: 59025; G0378; G0463

== ENCOUNTER → 2019-04-09 | Outpatient (CLI) | payer OTHER ==
--- NOTE | 2019-04-10 05:14 | REP ---
Clinical: Maternal hypertension. well-being. Comparison: 03/25/2019 Findings: Examination demonstrates a single live intrauterine in cephalic presentation. motion is identified by technologist. Placenta is noted anteriorly grade 1. There is no evidence for placenta previa or abruption. Cervix measures 3.2 cm in length and appears closed. No evidence for nuchal cord. Gestational age by LMP and first ultrasound 30 weeks 3 days. Estimated date of delivery 06/15/2019 FHR equals 147 beats per minute. Biophysical profile score: 8/8 Amniotic fluid index: 10.5 cm (8.9 - 23.6). Umbilical cord SD ratio ( insertion): 2.91 (3.3 - 4.7); RI 0.66 Umbilical cord SD ratio (placental insertion): 3.23 (2.5 - 3.5); RI 0.69 Umbilical cord SD ratio (mid cord): 2.78 (2.5 - 3.5); RI 0.64 Impression: 1. Single live intrauterine in cephalic presentation. 2. Biophysical profile score normal.
== END ==
LOC: M WHC 08:17
PROVIDERS: ATTEND Obstetrics & Gynecology
DX: O10.913 Unspecified pre-existing hypertension complicating pregnancy, third trimester (principal); Z3A.30 30 weeks gestation of pregnancy

== ENCOUNTER → 2019-04-24 | Outpatient (CLI) | payer OTHER ==
--- NOTE | 2019-04-24 16:37 | REP ---
Clinical: Maternal hypertension. well-being. Comparison: 04/09/2019 . Findings: Examination demonstrates a single live intrauterine in cephalic presentation. motion is identified by technologist. Placenta is noted anterior and grade I I without evidence for placenta previa or abruption. Amniotic fluid volume is normal. Cervix measures 3.4 cm in length and appears closed. No evidence for nuchal cord. Gestational age by first US 32 weeks 4 days with estimated date of delivery 06/15/2019. FHR equals 129 beats per minute. Biophysical profile score: 8/8 Amniotic fluid index: 13.2 cm (8.4 - 24.4) Impression: Single live advanced gestation in cephalic presentation. Biophysical profile score is normal. Amniotic fluid volume normal.
== END ==
LOC: M WHC 14:59
PROVIDERS: ATTEND Obstetrics & Gynecology
DX: O10.913 Unspecified pre-existing hypertension complicating pregnancy, third trimester (principal); Z3A.00 Weeks of gestation of pregnancy not specified

== ENCOUNTER → 2019-05-02 | Outpatient (CLI) | payer OTHER ==
--- NOTE | 2019-05-02 15:25 | REP ---
Clinical: Maternal hypertension. well-being . Comparison: 04/24/2019 . Findings: Examination demonstrates a single live intrauterine in cephalic presentation. motion is identified by technologist. Placenta is noted anterior and grade I I without evidence for placenta previa or abruption. Amniotic fluid volume is normal. Cervix measures 4.4 cm in length and appears closed. No evidence for nuchal cord. Gestational age by LMP 33 weeks 5 days with ARIC 06/15/2019 . FHR equals 122 beats per minute. Biophysical profile score: 8/8 Amniotic fluid index: 9.3 cm (8.2 - 24.7). Impression: Single live intrauterine in cephalic presentation. No physical profile score and amniotic fluid volume are normal.
== END ==
LOC: M WHC 14:14
PROVIDERS: ATTEND Obstetrics & Gynecology
DX: O10.913 Unspecified pre-existing hypertension complicating pregnancy, third trimester (principal)

== ENCOUNTER → 2019-05-08 | Outpatient (CLI) | payer OTHER ==
[~2019-05-08] MED LIST changes: +ACET-683 PO; +DOCU100C16 PO
--- NOTE | 2019-05-08 13:24 | REP ---
Third trimester obstetric ultrasound for biophysical profile: There is a single intrauterine gestation in a vertex presentation. The The placenta is anterior. There is no previa. The placenta is grade II. The heart rate is 143 beats per minute. The cervix is 3.9 cm length. Subjectively the amniotic fluid volume is normal. The amniotic fluid index is 10.8 (8.0 - 24.9). Gestational age by the first ultrasound is 34 weeks 4 days. Gestational age by LMP is 34 weeks 4 days. ARIC is 06/15/2019. biophysical profile: Breathing 2.0 Movement 2.0 Tone 2.0 AFV 2.0 Total 8.0 / 8.0 The Doppler SD ratio of the umbilical artery is 2.3.
== END ==
LOC: M WHC 12:06
PROVIDERS: ATTEND Obstetrics & Gynecology
DX: O10.913 Unspecified pre-existing hypertension complicating pregnancy, third trimester (principal)

== ENCOUNTER 2019-05-12 12:39 | Inpatient (IN) | payer OTHER ==
[2019-05-12] VITALS (8 sets, daily range): BP systolic 113–140; BP diastolic 52–75
[~2019-05-12] VITALS: Ht 157.5 cm; Wt 122.9 kg
[~2019-05-12 12:39] MED LIST changes: -ACET-683 PO
[2019-05-12] MEDS ORDERED: LR 1,000 ML IV SCH (12:44)
[2019-05-12] MEDS ORDERED: OXYTOCIN DRIP 30 UNITS in IV 1 EA IV SCH (12:45)
[2019-05-12] MEDS ORDERED: ACET-683 PO (13:03)
[2019-05-12] MEDS: BETAMETHASONE SOLUSPAN 6MG/ML INJ 5ML (J0702) IM SCH (14:12)
[2019-05-12 15:09] LABS: HEMOGLOBIN 11.4 g/dl (12.0-15.5); MEAN CORPUSCULAR HEMOGLOBIN 29.5 pg (27.0-33.0); MEAN CORPUSCULAR HGB CONC 33.5 g/dl (32.0-36.5); MEAN CORPUSCULAR VOLUME 87.9 fl (80.0-96.0); PLATELET COUNT, AUTOMATED 192 10^3/uL (150-450); RED BLOOD COUNT 3.87 10^6/uL (4.00-5.40); WHITE BLOOD COUNT 5.9 10^3/uL (4.0-10.0)
[2019-05-12 15:39] LABS: ALT/SGPT 14 U/L (12-78); BILIRUBIN,TOTAL 0.3 MG/DL (0.2-1.0); CREATININE FOR GFR 0.58 MG/DL (0.55-1.30); GLOMERULAR FILTRATION RATE > 60.0 (>60); LDH LACTATE DEHYDROGENASE 162 U/L (84-246); URIC ACID 4.1 MG/DL (2.6-6.0)
[2019-05-12 17:03] LABS: CREATININE,RANDOM URINE 66.9 MG/DL; TOTAL PROTEIN,RANDOM URINE 12.6 MG/DL (0.0-12.0)
[2019-05-12] MEDS ORDERED: hydrOXYzine 10 MG TAB PO PRN (17:15)
[2019-05-12] MEDS: SLF 3 ML SYR IV PRN (17:36)
[2019-05-12] MEDS: SLF 3 ML SYR IV SCH (22:50)
[2019-05-13] VITALS (8 sets, daily range): BP systolic 113–146; BP diastolic 59–72
[2019-05-13] MEDS: SLF 3 ML SYR IV SCH ×3 (06:34→22:00)
[2019-05-13] MEDS: NIFEdipine 30 MG XL TAB PO SCH (08:31)
[2019-05-13] MEDS: BETAMETHASONE SOLUSPAN 6MG/ML INJ 5ML (J0702) IM SCH (13:50)
[2019-05-14 02:52] VITALS: BP 116/56
[2019-05-14] MEDS: SLF 3 ML SYR IV SCH ×3 (06:00→22:00)
[2019-05-14 08:34] VITALS: BP 118/58
[2019-05-14] MEDS: NIFEdipine 30 MG XL TAB PO SCH (09:02)
[2019-05-14 14:19] VITALS: BP 142/74
[2019-05-14 15:56] VITALS: BP 141/66
[2019-05-15 07:31] VITALS: BP 147/74
[2019-05-15 09:06] VITALS: BP 144/78
[2019-05-15] MEDS: SLF 3 ML SYR IV SCH ×2 (09:07→18:12)
[2019-05-15] MEDS: NIFEdipine 30 MG XL TAB PO SCH (09:07)
[2019-05-15 15:59] VITALS: BP 126/73
[2019-05-15 20:23] VITALS: BP 127/62
[2019-05-15 23:36] VITALS: BP 146/86
[2019-05-16] VITALS (32 sets, daily range): BP systolic 113–184; BP diastolic 56–89
[2019-05-16] MEDS ORDERED: KETOROLAC 30 MG/ML VIAL (J1885) IV SCH (03:00)
[2019-05-16 05:22] LABS: HEMOGLOBIN 11.2 g/dl (12.0-15.5); MEAN CORPUSCULAR HEMOGLOBIN 29.5 pg (27.0-33.0); MEAN CORPUSCULAR HGB CONC 32.9 g/dl (32.0-36.5); MEAN CORPUSCULAR VOLUME 89.5 fl (80.0-96.0); PLATELET COUNT, AUTOMATED 206 10^3/uL (150-450); WHITE BLOOD COUNT 6.9 10^3/uL (4.0-10.0)
[2019-05-16] MEDS: SLF 3 ML SYR IV PRN (05:53)
[2019-05-16] MEDS: SLF 3 ML SYR IV SCH ×2 (05:53→14:00)
[2019-05-16] MEDS ORDERED: OXYTOCIN DRIP 30 UNITS in IV 1 EA IV SCH ×2 (07:45→21:34)
[2019-05-16] MEDS: LR 1,000 ML IV SCH ×3 (08:06→21:34)
[2019-05-16] MEDS: NIFEdipine 30 MG XL TAB PO SCH (08:54)
[2019-05-16] MEDS ORDERED: ceFAZolin SOD 2 GM in IV 1 EA IV ONE (20:00)
[2019-05-16] MEDS ORDERED: BICITRA 30ML SOLN UDC PO ONE (20:00)
[2019-05-16] MEDS ORDERED: miSOPROStol 200 MCG TAB (S0191) PR ONE (20:00)
[2019-05-16] MEDS ORDERED: ceFAZolin 2 GM/D5W 50 ML IV BAG (J0690 PER 500MG) As Ordered ONE (20:03)
[2019-05-16] MEDS ORDERED: BICITRA 30ML SOLN UDC As Ordered ONE (20:04)
[2019-05-16] MEDS ORDERED: propofoL 200 MG/20 ML VIAL As Ordered ONE ×3 (20:12→20:49)
[2019-05-16] MEDS ORDERED: LIDOCAINE 2% INJ 100 MG/5 ML SDV (FOR ANES.) As Ordered ONE (20:12)
[2019-05-16] MEDS ORDERED: SUCCINYLCHOLINE 100 MG/5 ML SYRINGE (J0330) As Ordered ONE (20:12)
[2019-05-16] MEDS ORDERED: MIDAZOLAM INJ 2 MG/2 ML VIAL (J2250) As Ordered ONE (20:13)
[2019-05-16] MEDS ORDERED: fentaNYL 100 MCG/2 ML INJECTION (J3010) As Ordered ONE ×2 (20:13→20:51)
[2019-05-16] MEDS ORDERED: ONDANSETRON 4MG/2ML VIAL (J2405) As Ordered ONE (20:27)
[2019-05-16] MEDS ORDERED: METOCLOPRAMIDE INJ 10MG/2ML VIAL (J2765) As Ordered ONE (20:27)
[2019-05-16] MEDS ORDERED: ACETAMINOPHEN 1000MG 100ML IV BTL (OFIRMEV) (J0131 PER 10MG) As Ordered ONE (20:41)
[2019-05-16] MEDS ORDERED: dexameTHASONE 4 MG/ML 1ML VIAL (J1100) As Ordered ONE (20:41)
[2019-05-16] MEDS ORDERED: KETOROLAC 60 MG/2 ML VIAL (J1885) As Ordered ONE (20:41)
[2019-05-16 20:42] LABS: CORD GAS ABE V -2.1; CORD GAS HCO3 V 23.5 MEQ/L; CORD GAS O2 SAT V 97.6 %; CORD GAS PCO2 V 43.5 mmHg; CORD GAS PH V 7.351 UNITS; CORD GAS SBC V 22.7 MEQ/L; CORD GAS TCO2 V 24.9 MEQ/L
[2019-05-16] MEDS ORDERED: OXYTOCIN INJ 10 UNITS/ML VIAL (J2590) As Ordered ONE (21:14)
[2019-05-16] MEDS ORDERED: fentaNYL 100 MCG/2 ML INJECTION (J3010) IV PRN (21:15)
[2019-05-16] MEDS ORDERED: ONDANSETRON 4MG/2ML VIAL (J2405) IV PRN (21:15)
[2019-05-16] MEDS ORDERED: HYDROMORPHONE HCL 0.5 MG/ 0.5 ML SYRINGE (J1170 PER 1) IV PRN (21:15)
[2019-05-16] MEDS ORDERED: miSOPROStol 200 MCG TAB (S0191) As Ordered ONE (21:17)
[2019-05-16] MEDS ORDERED: MEPERIDINE INJ 25 MG/ML VIAL (J2175) As Ordered ONE (21:31)
[2019-05-16] MEDS: MEPERIDINE INJ 25 MG/ML VIAL (J2175) IV PRN ×2 (21:33→21:40)
[2019-05-16] MEDS ORDERED: ACETAMINOPHEN 500 MG TAB PO PRN (21:45)
[2019-05-16] MEDS ORDERED: RHOGAM 300 MCG (1500 IU) INJ (J2790) IM SCH (21:45)
[2019-05-16] MEDS ORDERED: PERCOCET 5MG/325MG TAB PO PRN ×2 (21:45)
[2019-05-16] MEDS ORDERED: MEASLES,MUMPS,RUBELLA VACCINE INJ (MMR-II) (90707) SC SCH (21:45)
[2019-05-16] MEDS ORDERED: AZITHROMYCIN INJ 500 MG, VIAL MATE ADAPTER 1 EACH in D5W 250 ML IV ONE (22:00)
[2019-05-17] MEDS: LR 1,000 ML IV SCH (00:03)
[2019-05-17 00:30] VITALS: BP 140/80
[2019-05-17 01:30] VITALS: BP 114/62
[2019-05-17] MEDS: ceFAZolin SOD 2 GM in IV 1 EA IV SCH ×3 (03:52→20:30)
[2019-05-17] MEDS: KETOROLAC 30 MG/ML VIAL (J1885) IV SCH ×3 (03:52→15:26)
[2019-05-17 06:00] VITALS: BP 121/63
--- NOTE | 2019-05-17 07:31 | IPNPDOC ---
Progress Note Date of Service: May 17, 2019 Day#: 1 Progress Note SUBJECT: Miriam is at 24 year-old , doing well post-op day # 1. She has been ambulating without difficulty. Toth catheter in place and draining. She is tolerating PO intake well. Patient plans to pump and breastfeed. in NICU. Reports lochia is like a normal period. Reports pain is well controlled. OBJECTIVE: VITAL SIGNS: Within normal limits, afebrile. Alert and oriented times three. EPDS score 12. Patient reports coping adequately at this time. Breath sounds clear to auscultation. Heart rate: Regular rate and rhythm, no murmurs, rubs or gallops. Abdomen: Fundus firm at U-1. Soft, appropriately tender to palpation. Abdominal dressing is clean, dry and intact. Minimal lochia. ASSESSMENT: Post-op day 1. Vitals within normal limits, afebrile, hemodynamically stable with no evidence of infection. PLAN: 1. Routine post-op care. 2. Tylenol and Motrin for pain. 3. Encourage breast feeding and ambulation. 4. Discontinue toht catheter per protocol. 5. Monitor and reassess for depression. VS, I&O, 24H, Fishbone Vital Signs/I&O Vital Signs Date Time Temp Pulse Resp B/P (MAP) Pulse Ox O2 Delivery O2 Flow Rate FiO2 05/17/19 06:00 98.9 83 18 121/63 (82) 96 Room Air 05/16/19 21:25 10 I&O- Last 24 Hours up to 6 AM 05/17/19 06:00 Intake Total 3495 ml Output Total 1750 ml Balance 1745 ml Laboratory Data 24H LABS Laboratory Tests 2 05/16/19 20:33: Cord Venous Blood pH 7.351, Cord Venous Blood PCO2 43.5, Cord Venous Blood PO2 73.0, Cord Venous Blood HCO3 23.5, Cord Venous Blood Total CO2 24.9, Cord Venous Base Excess (Actual) -2.1, Cord Venous Base Excess (Standard) 22.7, Cord Venous Blood Oxygen Saturation 97.6 05/17/19 04:05: Serology Scanned Report Hepatitis B Testing CBC/BMP Viv Warner CNM May 17, 2019 07:31
[2019-05-17 07:43] LABS: HEMATOCRIT 28.5 % (36.0-47.0); HEMOGLOBIN 9.6 g/dl (12.0-15.5); MEAN CORPUSCULAR HEMOGLOBIN 29.9 pg (27.0-33.0); MEAN CORPUSCULAR HGB CONC 33.7 g/dl (32.0-36.5); MEAN CORPUSCULAR VOLUME 88.8 fl (80.0-96.0); PLATELET COUNT, AUTOMATED 205 10^3/uL (150-450); RED BLOOD COUNT 3.21 10^6/uL (4.00-5.40); WHITE BLOOD COUNT 10.5 10^3/uL (4.0-10.0)
[2019-05-17 09:00] VITALS: BP 140/66
[2019-05-17] MEDS ORDERED: INFLUENZA QUADRIVALENT PF VACCINE 0.5ML SYRINGE (90686) IM ONE (09:00)
[2019-05-17] MEDS: ASPIRIN 81 MG ENTERIC TAB PO SCH (09:04)
[2019-05-17] MEDS: PRENATAL VITAMINS CHEWABLE TABLET PO SCH (09:04)
[2019-05-17] MEDS: NIFEdipine 30 MG XL TAB PO SCH (09:04)
[2019-05-17] MEDS: DOCUSATE SODIUM 100 MG CAP PO SCH ×2 (09:04→20:44)
[2019-05-17] MEDS ORDERED: SLF 3 ML SYR IV PRN (10:15)
[2019-05-17 12:35] VITALS: BP 132/62
[2019-05-17] MEDS: SLF 3 ML SYR IV SCH ×2 (14:02→22:39)
[2019-05-17 17:00] VITALS: BP 142/71
[2019-05-17] MEDS: IBUPROFEN 800 MG TAB PO SCH (22:53)
[2019-05-18] MEDS: SLF 3 ML SYR IV SCH (05:47)
[2019-05-18 06:00] VITALS: BP 121/75
[2019-05-18] MEDS: IBUPROFEN 800 MG TAB PO SCH (06:58)
[2019-05-18] MEDS: PRENATAL VITAMINS CHEWABLE TABLET PO SCH (08:41)
[2019-05-18] MEDS: DOCUSATE SODIUM 100 MG CAP PO SCH (08:41)
[2019-05-18] MEDS: ASPIRIN 81 MG ENTERIC TAB PO SCH (08:42)
[2019-05-18 08:44] VITALS: BP 122/58
[2019-05-18 08:46] VITALS: BP 122/58
[2019-05-18] MEDS: NIFEdipine 30 MG XL TAB PO SCH (08:46)
[2019-05-18] MEDS ORDERED: INFLUENZA QUADRIVALENT PF VACCINE 0.5ML SYRINGE (90686) IM ONE (09:00)
[2019-05-18] MEDS ORDERED: DOCU100C16 PO (09:59)
[2019-05-18] MEDS ORDERED: PERCOCET PO (09:59)
[2019-05-18] MEDS ORDERED: IBUP80TA PO (09:59)
== END 2019-05-18 11:32 | disposition home or self-care (01) | DRG 772 ==
LOC: M LDI 12:39 → M OBS 05-16 21:55
PROVIDERS: ADMIT Advanced Practice Midwife; ATTEND Obstetrics & Gynecology
PROC: 3E033VJ Introduction of Other Hormone into Peripheral Vein, Percutaneous Approach (ICD-10-PCS; 2019-05-16)
PROC: 10D00Z1 Extraction of Products of Conception, Low, Open Approach (ICD-10-PCS; principal; 2019-05-16 21:04)
DX: O41.03X0 Oligohydramnios, third trimester, not applicable or unspecified (principal); O10.02 Pre-existing essential hypertension complicating childbirth; O99.354 Diseases of the nervous system complicating childbirth; O34.211 Maternal care for low transverse scar from previous cesarean delivery; Z3A.35 35 weeks gestation of pregnancy; O99.214 Obesity complicating childbirth; E66.9 Obesity, unspecified; G47.30 Sleep apnea, unspecified; O26.23 Pregnancy care for patient with recurrent pregnancy loss, third trimester; O66.41 Failed attempted vaginal birth after previous cesarean delivery; O69.0XX0 Labor and delivery complicated by prolapse of cord, not applicable or unspecified; Z37.0 Single live birth

== ENCOUNTER → 2019-05-12 | Outpatient (REF) | payer OTHER ==
[~2019-05-12] MED LIST changes: -DOCU100C16 PO
== END ==
LOC: M SFHCWAGY 13:13
PROVIDERS: ATTEND Obstetrics & Gynecology
DX: O10.913 Unspecified pre-existing hypertension complicating pregnancy, third trimester (principal)

== ENCOUNTER → 2019-05-12 | Outpatient (CLI) | payer OTHER ==
--- NOTE | 2019-05-12 10:38 | REP ---
Emergency obstetric sonography: History: Suspect oligohydramnios. Comparison study May 08, 2019. Findings: Transabdominal scanning confirms the presence of a single living intrauterine gestation in a cephalic lie. An anterior grade 1 placenta is seen without evidence of previa or abruption. Amniotic fluid is subjectively low. Amniotic fluid index is 6.9 cm (7.9-24.9 cm). SD ratio in the umbilical cord artery by Doppler is normal 1.8. Biophysical profile score is six out of a possible eight with zero scored for amniotic fluid volume. heart rate is recorder 152 beats per minute. Closed cervical length is 3.1 cm. Impression: Oligohydramnios. Electronically Signed by Martinez Guzman MD 05/12/2019 10:29 A
== END ==
LOC: M WHC 09:44
PROVIDERS: ATTEND Obstetrics & Gynecology
DX: O10.913 Unspecified pre-existing hypertension complicating pregnancy, third trimester (principal)

== ENCOUNTER → 2020-02-17 | Outpatient (CLI) | payer OTHER ==
[~2020-02-17] MED LIST changes: +ACET-683 PO; -ASPI81TA85 PO; +ASPI81TA86 PO; +DOCU100C16 PO
== END ==
LOC: M LABSMTC 14:20
PROVIDERS: ATTEND Pediatrics
DX: Z11.59 Encounter for screening for other viral diseases (principal)

== ENCOUNTER → 2023-11-13 | Outpatient (CLI) | payer OTHER ==
[~2023-11-13] MED LIST changes: -NIFE60TA40 PO; +NIFE60TA96 PO
[2023-11-13 12:13] LABS: BASO % 0.4 % (0.0-1.0); EOS # 0.6 10^3/uL (0.0-0.5); EOS % 5.8 % (0.0-3.0); HEMATOCRIT 41.5 % (36.0-47.0); LYMPH # 2.9 10^3/uL (1.5-5.0); MEAN CORPUSCULAR HEMOGLOBIN 31.5 pg (27.0-33.0); MEAN CORPUSCULAR HGB CONC 33.7 g/dl (32.0-36.5); MEAN CORPUSCULAR VOLUME 93.3 fl (80.0-96.0); MONO # 0.7 10^3/uL (0.0-0.8); MONO % 7.1 % (2.0-8.0); NEUTROPHILS # 5.2 10^3/uL (1.5-8.5); NEUTROPHILS % 55.4 % (36.0-66.0); PLATELET COUNT, AUTOMATED 220 10^3/uL (150-450); RED BLOOD COUNT 4.45 10^6/uL (4.00-5.40); WHITE BLOOD COUNT 9.4 10^3/uL (4.0-10.0)
[2023-11-13 12:33] LABS: ALBUMIN 3.6 G/DL (3.2-5.2); ALKALINE PHOSPHATASE 64 U/L (46-116); ALT/SGPT 17 U/L (7.0-40); AST/SGOT 10 U/L (<34); BILIRUBIN,TOTAL 0.4 MG/DL (0.3-1.2); BLOOD UREA NITROGEN 13 MG/DL (9-23); CALCIUM LEVEL 9.2 MG/DL (8.5-10.1); CARBON DIOXIDE LEVEL 25 MMOL/L (20-31); CHLORIDE LEVEL 108 MMOL/L (98-107); CHOLESTEROL LEVEL 207 MG/DL (<200); CHOLESTEROL RISK RATIO 6.78 (<5); CREATININE FOR GFR 0.94 MG/DL (0.55-1.30); GLOMERULAR FILTRATION RATE > 60.0 (>60); GLUCOSE, FASTING 96 MG/DL (60-100); HDL CHOLESTEROL 30.5 MG/DL (>40); LDL CHOLESTEROL 102.9 MG/DL (<100); MAGNESIUM LEVEL 1.7 MG/DL (1.8-2.4); NON-HDL-C 176.5 MG/DL; POTASSIUM SERUM 4.3 MMOL/L (3.5-5.1); SODIUM LEVEL 138 MMOL/L (136-145); TOTAL PROTEIN 6.7 G/DL (5.7-8.2); TRIGLYCERIDES LEVEL 368 MG/DL (<150)
[2023-11-13 12:36] LABS: FREE T4 1.13 NG/DL (0.89-1.76)
[2023-11-13 12:37] LABS: THYROID STIMULATING HORMONE 3.012 uIU/ML (0.55-4.78)
[2023-11-13 12:38] LABS: FOLATE 17.4 NG/ML (>5.4); VITAMIN B12 LEVEL 379 PG/ML (211-911)
== END ==
LOC: M WUC 09:32
PROVIDERS: ATTEND Physician Assistant
DX: G47.33 Obstructive sleep apnea (adult) (pediatric) (principal); R55 Syncope and collapse; Z68.43 Body mass index [BMI] 50.0-59.9, adult; Z13.1 Encounter for screening for diabetes mellitus; Z13.220 Encounter for screening for lipoid disorders

== ENCOUNTER → 2024-01-28 | Outpatient (REF) | LOC: M EMP 08:57 | PROVIDERS: ATTEND Family Medicine | DX: Z11.52 Encounter for screening for COVID-19 (principal) ==

== ENCOUNTER → 2024-01-28 | Outpatient (REF) | LOC: M EMP 08:56 | PROVIDERS: ATTEND Family Medicine | DX: Z11.52 Encounter for screening for COVID-19 (principal) ==

== ENCOUNTER 2024-03-28 07:39 | Emergency (ER) | payer OTHER ==
[~2024-03-28] VITALS: Ht 157.5 cm; Wt 128.0 kg
[2024-03-28 07:45] VITALS: BP 168/108; TEMP 98.7; O2SAT 98
[2024-03-28] MEDS ORDERED: ACET-683 PO (08:01)
[2024-03-28] MEDS ORDERED: TOPI-21 (08:01)
[2024-03-28] MEDS ORDERED: SUMA100T2 (08:01)
[2024-03-28] MEDS ORDERED: LISI10TA22 (08:01)
[2024-03-28] MEDS ORDERED: ALBU8.5H (08:01)
[2024-03-28] MEDS ORDERED: AMOX875T2 PO (08:44)
[2024-03-28] MEDS: AUGMENTIN 875 MG TAB PO ONE (09:06)
== END 2024-03-28 09:10 | disposition home or self-care (01) ==
LOC: M ED 07:39
DX: K02.9 Dental caries, unspecified (principal); I10 Essential (primary) hypertension

== ENCOUNTER → 2024-05-13 | Outpatient (CLI) | payer OTHER ==
[~2024-05-13] MED LIST changes: +ALBU8.5H; +AMOX875T2 PO; +LISI10TA22; +SUMA100T2; +TOPI-21
[2024-05-13 16:03] LABS: BLOOD UREA NITROGEN 19 MG/DL (9-23); CALCIUM LEVEL 9.4 MG/DL (8.5-10.1); CARBON DIOXIDE LEVEL 22 MMOL/L (20-31); CHLORIDE LEVEL 109 MMOL/L (98-107); CREATININE FOR GFR 1.09 MG/DL (0.55-1.30); GLOMERULAR FILTRATION RATE > 60.0 (>60); GLUCOSE, FASTING 90 MG/DL (60-100); POTASSIUM SERUM 3.9 MMOL/L (3.5-5.1); SODIUM LEVEL 141 MMOL/L (136-145)
== END ==
LOC: M WUC 10:08
PROVIDERS: ATTEND Physician Assistant
DX: I10 Essential (primary) hypertension (principal)

== ENCOUNTER → 2024-06-23 | Outpatient (CLI) | payer OTHER ==
[2024-06-23 07:52] LABS: ALBUMIN 4.2 G/DL (3.2-5.2); BILIRUBIN,TOTAL 0.9 MG/DL (0.3-1.2); CALCIUM LEVEL 9.3 MG/DL (8.5-10.1); CHOLESTEROL RISK RATIO 5.92 (<5); CREATININE FOR GFR 1.04 MG/DL (0.55-1.30); GLOMERULAR FILTRATION RATE 73.7 (>60); HDL CHOLESTEROL 31.9 MG/DL (>40); LDL CHOLESTEROL 121.5 MG/DL (<100); NON-HDL-C 157.1 MG/DL; TOTAL PROTEIN 7.3 G/DL (5.7-8.2)
== END ==
LOC: M LAB 06:58
PROVIDERS: ATTEND Physician Assistant
DX: E78.2 Mixed hyperlipidemia (principal)

== ENCOUNTER → 2024-07-16 | Outpatient (REF) | payer OTHER | LOC: M LAB REF 16:47 | PROVIDERS: ATTEND Physician Assistant | DX: J02.9 Acute pharyngitis, unspecified (principal) ==

== ENCOUNTER → 2024-11-19 | Outpatient (CLI) | payer OTHER | LOC: M WUC 15:46 | PROVIDERS: ATTEND Nurse Practitioner Family | DX: Z78.9 Other specified health status (principal) ==

== ENCOUNTER → 2025-01-21 | Outpatient (CLI) | payer OTHER | LOC: M RAD 07:09 | PROVIDERS: ATTEND Nurse Practitioner Family | DX: I10 Essential (primary) hypertension (principal) ==